=== PATIENT | male | born 1960 ===

== ENCOUNTER 2023-08-28 08:37 | Outpatient (CLI) | payer OTHER | END 2023-08-28 08:44 | disposition home or self-care (01) | LOC: SONOGRAMA 08:37 → EDSEX 08:37 → SONOGRAMA 08:44 | PROVIDERS: ATTEND Pathology Anatomic Pathology & Clinical Pathology | DX: D34 Benign neoplasm of thyroid gland (principal); E04.9 Nontoxic goiter, unspecified ==